=== PATIENT | female | born 1980 | race Caucasian/White ===

== ENCOUNTER 2018-10-10 17:15 | Emergency (ER) | payer OTHER ==
[~2018-10-10] VITALS: Ht 157.5 cm; Wt 61.2 kg
[~2018-10-10 17:15] MED LIST: ADVIL200 MG PO; CLARITIN10 M2 PO; DILAUDID2 MG PO; DULCOLAX5 MG PO; IBUPROFEN800 MG PO; LIDODERM700 MG TOP; NORCO 5-325 TA1 EACH PO; NUVESSA5 GM VG; PERCOCET 5-3251 EACH PO; TRAMADOL HCL50 MG PO; VALIUM5 MG PO; VESICARE10 MG PO; ZITHROMAX500 MG PO
[2018-10-10] MEDS ORDERED: CEPHALEXIN500 MG PO (20:50)
[2018-10-10] MEDS ORDERED: NORCO 5-325 TA1 EACH PO (20:50)
[2018-10-10] MEDS ORDERED: PYRIDIUM200 MG PO (20:50)
== END 2018-10-10 21:12 | disposition home or self-care (01) ==
LOC: ED 17:15
DX: N39.0 Urinary tract infection, site not specified (principal); F17.200 Nicotine dependence, unspecified, uncomplicated
CPT/HCPCS: 81001; 84703; 99284; 99406

== ENCOUNTER 2020-06-19 13:30 | Emergency (ER) | payer BC, OTHER ==
[~2020-06-19] VITALS: Ht 157.5 cm; Wt 61.2 kg
[~2020-06-19 13:30] MED LIST changes: +CEPHALEXIN500 MG PO; +PYRIDIUM200 MG PO
--- NOTE | 2020-06-19 15:00 | EKG ---
[facility] [address] [facility] [place], [place] [address] Signed Normal sinus rhythm Normal ECG No previous ECGs available Confirmed by ELVIE GANN DO ([id number]) on 06/19/2020 2:59:49 PM Electronically Signed By: ELVIE GANN DO 06/19/20 1500 PATIENT NAME: DMITRIY JAQUEZ Electrocardiogram DATE OF : 76 PHYSICIAN: ELVIE GANN DO REPORT #: [id number] REPORT IS CONFIDENTIAL AND NOT TO BE RELEASED WITHOUT AUTHORIZATION
== END 2020-06-19 16:49 | disposition home or self-care (01) ==
LOC: ED 13:30
DX: R56.9 Unspecified convulsions (principal); F17.200 Nicotine dependence, unspecified, uncomplicated
CPT/HCPCS: 70450; 71045; 73610; 80053; 84484; 85025; 93005; 93010; 99285-25

== ENCOUNTER 2022-09-18 07:20 | Day surgery (SDC) | payer BC, OTHER ==
[2022-09-16 16:09] VITALS: BP 102/67
[~2022-09-18] VITALS: Ht 157.5 cm; Wt 65.0 kg
[~2022-09-18 07:20] MED LIST changes: +NAPROXEN250 MG PO
[2022-09-18 07:33] VITALS: BP 119/59
[2022-09-18] MEDS ORDERED: CELECOXIB200 MG PO (11:05)
[2022-09-18] MEDS ORDERED: HYDROCODON-ACE1 EA10 PO (11:05)
--- NOTE | 2022-09-18 11:10 | NUR ---
09/18/22 1110 Jimena Garcia 1104- PT ARRIVES TO PACU AWAKE AND TALKING. PT REPORTS NO PAIN OR NAUSEA. STATES SHE IS "JUST HUNGRY". RESP EVEN AND UNLABORED. OXYGEN SAT 100% ON 6L VIA MASK. 1106- OXYGEN TITRATED OFF. 1109- PT SITTING UP IN BED. PT REPORTS NO DIZZINESS, NAUSEA, OR PAIN.
[2022-09-18 11:27] VITALS: BP 103/70
--- NOTE | 2022-09-18 11:42 | NUR ---
PT ALERT, ORIENTED AND SUPPORTED BY FAMILY. PT SEEMS INFORMED, THANKED ME FOR VISIT. FAMILY WILL REMAIN FOR DC. GAVE BLESSING AND WILL FOLLOW
--- NOTE | 2022-09-21 08:41 | OR ---
[facility] [address] [facility] [place] [address] Signed DATE OF OPERATION: 09/18/2022 SURGEON: Lou Gr MD PREOPERATIVE DIAGNOSIS: Trigger finger, left ring. POSTOPERATIVE DIAGNOSIS: Trigger finger, left ring. PROCEDURE PERFORMED: Trigger finger release, left ring. JUICE STANDARDIZER: None. ANESTHESIA: Touchet block. TOURNIQUET TIME: 20 minutes. BRIEF HISTORY: Jessica is a 42-year-old female with pain and locking in her finger. She did have some abnormal pain behavior in the thumb and index finger as well. She has also was reported skin changes such as extreme cold and blanching of the skin. This makes me think that she may have . The trigger finger release was discussed with her and she elected to proceed. DESCRIPTION OF PROCEDURE: Once consent was obtained, she was taken to the operating room. After adequate anesthesia, she was left on the day surgery bed with a hand table and was prepped and draped in a standard sterile fashion and the Ron block was allowed to establish. A 1 cm incision was made overlying the distal palmar crease on the ring finger, carried through the skin and subcutaneous tissue. Under loupe magnification, the A1 bekah was identified and dissected free of overlying soft tissue. It was then released using tenotomy scissors. The patient was asked to move her fingers. She could not move her hand at all under the Ron block. We did passively move her hand, she had free excursion of the tendon. The wound was copiously irrigated with normal saline, closed with 3-0 nylon and injected with 4 mL of 0.25% Marcaine plain. The wound was then Electronically Signed By: LOU GR MD 09/21/22 0841 PATIENT NAME: JESSICA JAQUEZ OPERATIVE REPORT DATE OF : [birth year] REPORT #: [id number] PHYSICIAN: LOU GR MD PCP: Becky FLORES REPORT IS CONFIDENTIAL AND NOT TO BE RELEASED WITHOUT AUTHORIZATION [facility] [address] [place], [place] [address] Signed dressed with bacitracin, Adaptic, 4x8's, and gauze. She tolerated the procedure well. All sponge, needle, and instrument counts were correct. Lou Gr MD BA/MODL /[id number] Copies: ~ Electronically Signed By: LOU GR MD 09/21/22 0841 PATIENT NAME: JESSICA JAQUEZ OPERATIVE REPORT DATE OF : [birth year] REPORT #: [id number] PHYSICIAN: LOU GR MD PCP: Becky FLORES REPORT IS CONFIDENTIAL AND NOT TO BE RELEASED WITHOUT AUTHORIZATION
== END 2022-09-18 11:40 | disposition home or self-care (01) ==
LOC: DS 07:20
PROVIDERS: ATTEND Specialist
PROC: 0LN80ZZ Release Left Hand Tendon, Open Approach (ICD-10-PCS; principal; 2022-09-18 10:15)
DX: M65.342 Trigger finger, left ring finger (principal)
CPT/HCPCS: 84703; J0690; J2001; J2250; J2704; J7121

== ENCOUNTER 2022-11-25 01:48 | Observation (INO) | payer BC, OTHER ==
[~2022-11-25] VITALS: Ht 157.5 cm; Wt 65.0 kg
--- OUTSIDE RECORDS SUMMARY | ~2022-11-25 | XMS | Continuity of Care Document ---
Demographics + + + | Address | [address] | | | [place] [address] | + + + | Preferred Language | Unknown | + + + | Marital Status | | + + + | Mandaen Affiliation | Unknown | + + + | Race | White | + + + | Ethnic Group | Unknown | + + + Author + + + | Author | [facility] | + + + | Organization | [facility] | + + + | Address | [address] | | | [place] [address] | + + + | Phone | | + + + Care Team Providers + + + + | Care Websphere Process Server Developer Name | Role | Phone | + + + + Unavailable | Unavailable | + + + + Allergies No information. Encounters No information. Functional Status No information. Immunizations No information. Medications No information. Problems + + + + | date | description | facility | + + + + | 2022-09-18 07:20 | TRIGGER FINGER, LEFT RING | [facility] | | | FINGER | | + + + + Procedures No information. Results/Labs No information. Social History No information. Vital Signs No information."
--- OUTSIDE RECORDS SUMMARY | ~2022-11-25 | XMS | Continuity of Care Document ---
Demographics + + + | Address | [address] | | | [place] [address] | + + + | Preferred Language | Unknown | + + + | Marital Status | | + + + | Faith Affiliation | Unknown | + + + | Race | White | + + + | Ethnic Group | Unknown | + + + Author + + + | Author | [facility] | + + + | Organization | [facility] | + + + | Address | [address] | | | [place] [address] | + + + | Phone | | + + + Care Team Providers + + + + | Care Radio Station Engineer Name | Role | Phone | + + + + Unavailable | Unavailable | + + + + Allergies and Intolerances + + + + + | date | description | facility | type | + + + + + | (no date) | No Known Allergies | [facility] | (unknown) | | | | | | + + + + + Encounters No information. Functional Status No information. [...]
--- OUTSIDE RECORDS SUMMARY | ~2022-11-25 | XMS | Continuity of Care Document ---
Demographics + + + | Address | [address] | | | [place] [address] | + + + | Preferred Language | Unknown | + + + | Marital Status | | + + + | Jehovah'S Witness Affiliation | Unknown | + + + | Race | White | + + + | Ethnic Group | Unknown | + + + Author + + + | Author | [facility] | + + + | Organization | [facility] | + + + | Address | [address] | | | [place] [address] | + + + | Phone | | + + + Care Team Providers + + + + | Care Acid Bath Mixer Name | Role | Phone | + [...]
[~2022-11-25 01:48] MED LIST changes: +CELECOXIB200 MG PO; +HYDROCODON-ACE1 EA10 PO
[2022-11-25 05:01] VITALS: BP 105/63
--- NOTE | 2022-11-25 06:49 | NUR ---
Pt admision completed. Pt independent, no complains of pain. at bedside. NPO
--- NOTE | 2022-11-25 07:00 | NUR ---
REPORT RECEIVED FROM KARLA MEDINA. PT LAYING IN BED SEMI-FOWLERS. PT RESPONDS WHEN ADDRESSED. PT DENIES PAIN AT THIS TIME. PT REQUESTING WATER, PROVIDED PT WITH MOUTH SWAB DUE TO PTs NPO STATUS. AT BEDSIDE. PT DENIES ANY OTHER NEEDS AT THIS TIME. CALL LIGHT IN REACH.
--- NOTE | 2022-11-25 08:45 | NUR ---
IN TO ADMINISTER MEDICATION, SEE MAR. PT RESPONDS WHEN ADDRESSED. OR, RN IN ROOM AWAITING TO TAKE PT TO OR. PT DENIES PAIN AT THIS TIME. LR WITH STRAIGHT TUBING HUNG. PT ESCORTED WITH OR NURSE TO OR VIA HOSPITAL BED.
[2022-11-25] MEDS ORDERED: TYLENOL EXTRA500 MG PO (11:32)
[2022-11-25] MEDS ORDERED: PERCOCET 7.5-31 EACH PO (11:32)
--- NOTE | 2022-11-25 11:32 | NUR ---
11/25/22 1132 Pearl Abel 11:19 PT ARRIVED FROM OR, NO AIRWAY NOTED, ON ROOMAIR, HAS 4 SCOPE SITES THAT ARE CLEAN DRY AND INTACK. 1130 PT C/O BURNING ACROSS HER ABD, UNABLE TO RATE PAIN AT THIS TIME, FALLS BACK ASLEEP.
[2022-11-25] MEDS ORDERED: MOTRIN IB200 MG PO (11:33)
--- NOTE | 2022-11-25 11:34 | NUR ---
PT STILL OUT OF ROOM IN OR.
--- NOTE | 2022-11-25 12:05 | NUR ---
PT ARRIVES TO FLOOR ACCOMPANIED BY KARLA VALDOVINOS. BEDSIDE REPORT RECEIVED. PT REPORTING PAIN 10/10 TO ABD. PRN PAIN AND NAUSEA MEDICATION ADMINISTERED, SEE JUL. IV FLUIDS STARTED, SEE JUL. PT REQUESTING ICE CHIPS AND CRACKERS. ICE CHIPS AND CRACKERS PROVIDED. VITALS COMPLETE. ASSESSMENT COMPLETE. LUNG SOUNDS CLEAR. BOWEL TONES ACTIVE. ABD TENDER WITH PALPATION. LAP SITES X4 WITH SMALL AMOUNT OF DRAINAGE NOTED. DRESSINGS OTHERWISE INTACT. PT DENIES ANY OTHER NEEDS AT THIS TIME. CALL LIGHT IN REACH.
--- NOTE | 2022-11-25 12:06 | NUR ---
PATIENT RETURNED FROM THE OR. AT BEDSIDE. WILL RETURN LATER TO DISCUSS THE DISCHARGE PLAN AND PATIENT IS MORE AWAKE FROM SURGERY.
[2022-11-25 12:22] VITALS: BP 129/60
--- NOTE | 2022-11-25 12:56 | HP ---
[facility] [address] [place], [place] [address] Signed ADMISSION DATE: 11/25/2022 REASON FOR ADMISSION: Acute calculous cholecystitis. HISTORY OF PRESENT ILLNESS: This 42-year-old white woman is accompanied by her . She has had increasing right subscapular pain over the past several months. Notably, she has had seven children and multiple family members with gallstones. Her symptoms have accelerated over the past several weeks and last night, an episode occurred that was unrelenting and quite severe. On that basis, she presented to the emergency room where she was found to have normal urinalysis as well as Chem profile and CBC, but with her unrelenting pain underwent a CT scan of the abdomen under the direction of Dr. Stubbs, the emergency room physician. A CT scan showed no evidence of nephrolithiasis, but did show gallstones and mild gallbladder wall thickening. On that basis, she was admitted for acute calculous cholecystitis. Quite notably, her pain is mostly in the subscapular area reliably so and migrating no where else. She has not had complaints of epigastric or right subcostal pain. PAST MEDICAL HISTORY: Relatively unremarkable. She did have trigger finger surgery by Dr. Gr in the recent past. She has had a pelvic fracture and fracture of the lumbar spine in 2015 as well as head trauma. She has had tubal ligation. CURRENT MEDICATIONS: Include Celebrex and [place]. SOCIAL HISTORY: She is . She is accompanied by her . She lives in [place]. She is not working outside the home, though previously worked at [employer]. REVIEW OF SYSTEMS: She denies any shortness of breath or chest pain. She has had no dysphagia or dysuria. Denies any hematemesis or blood per rectum. PHYSICAL EXAMINATION: GENERAL: Pleasant white woman, who does not look systemically toxic at this time. VITAL SIGNS: Temperature is 97.8, pulse 54, respirations 20, blood pressure 112/67. HEENT: Trachea is midline. Mucous membranes are slightly dry. Electronically Signed By: ADRIANO SHERMAN MD 11/25/22 1256 PATIENT NAME: DMITRIY JAQUEZ HISTORY AND PHYSICAL DATE OF : 76 REPORT #: [id number] PHYSICIAN: ADRIANO SHERMAN MD PCP: Becky NGUYEN REPORT IS CONFIDENTIAL AND NOT TO BE RELEASED WITHOUT AUTHORIZATION [facility] [address] [place], [place] [address] Signed CHEST: Clear. HEART: Regular without murmur. ABDOMEN: Soft. There is tenderness in the right upper quadrant. There is no palpable mass. She has no ascites. EXTREMITIES: Show no clubbing, cyanosis, or edema. LABORATORY STUDIES: Show a normal urinalysis. Beta HCG is negative. White count 7.1, hematocrit 40.9 and platelets 114,000. Electrolytes normal. Creatinine 0.79. I reviewed the CT scan. Gallstones are rather subtle, certainly not well calcified. ASSESSMENT: The patient has typical symptoms of biliary pain including subscapular pain and tenderness in the right upper quadrant. She has a strong family history of biliary disease and almost certainly has acute calculous cholecystitis. I discussed the pathophysiology of the problem with him in detail. I have recommended cholecystectomy preferred by a laparoscopic approach. The risk of bleeding, infection, bile duct injury, need for open surgery, need for common duct exploration and so forth were all reviewed in detail. She understands and wished to proceed. PLAN: We will initiate operation this morning. As she does feel somewhat thirsty, additional fluid will be administered as well. MD GREG De [place]/AMINTA /[id number] cc: Dr.Servin Dr. Nguyen Electronically Signed By: ADRIANO SHERMAN MD 11/25/22 1256 PATIENT NAME: DMITRIY JAQUEZ HISTORY AND PHYSICAL DATE OF : 76 REPORT #: [id number] PHYSICIAN: ADRIANO SHERMAN MD PCP: Becky NGUYEN REPORT IS CONFIDENTIAL AND NOT TO BE RELEASED WITHOUT AUTHORIZATION [facility] [address] [facility] [place] [address] Signed Copies: ~ Electronically Signed By: ADRIANO SHERMAN MD 11/25/22 1256 PATIENT NAME: DMITRIY JAQUEZ HISTORY AND PHYSICAL DATE OF : 76 REPORT #: [id number] PHYSICIAN: ADRIANO SHERMAN MD PCP: Becky NGUYEN REPORT IS CONFIDENTIAL AND NOT TO BE RELEASED WITHOUT AUTHORIZATION
[2022-11-25 13:15] VITALS: BP 110/64
[2022-11-25 14:00] VITALS: BP 108/73
[2022-11-25 15:46] VITALS: BP 119/67
--- NOTE | 2022-12-03 18:00 | OR ---
[facility] [address] [place], [place] [address] Signed DATE OF OPERATION: 11/25/2022 SURGEON: Adriano Sherman MD PREOPERATIVE DIAGNOSIS: Acute calculous cholecystitis. POSTOPERATIVE DIAGNOSIS: Acute calculous cholecystitis. PROCEDURES: 1. Laparoscopic cholecystectomy with intraoperative cholangiogram. 2. Surgeon-directed fluoroscopy. ANESTHESIA: General endotracheal. , HAND PACKER/PACKAGER and local 10 mL of 0.5%, Marcaine with epinephrine. INDICATION: This 42-year-old white woman was admitted in the rag inspector hours today following presentation in the emergency room and evaluation by . The patient has complaints of chronic recurring subscapular pain on the right and minimal right subcostal pain. Clinical examination showed tenderness in the right upper quadrant. A CT scan was performed which showed gallstones within the gallbladder, though they were not calcified. Her liver enzymes are normal as is her urinalysis and CBC. She has been fluid resuscitated given intravenous antibiotics, parenteral pain medication, ulcer prophylaxis and DVT prophylaxis and is now ready to undergo cholecystectomy preferred by laparoscopic approach. The patient and her understand the risk of bleeding, infection, bile duct injury, need for open surgery, and of course failure to cure her symptoms and wished to proceed. FINDINGS: Indeed the gallbladder was acutely inflamed. A fair amount of edema was noted in the infundibulum and throughout. The gallbladder once excised had innumerable small stones and one single large stone approximately 2 cm in size. The cholangiogram was normal. The liver was normal. There were no other findings of concern. PROCEDURE IN DETAIL: The patient was brought to the operating room, given a general endotracheal anesthetic. A Lira catheter was placed that she had not voided in some time. Ultimately, 1100 mL Electronically Signed By: ADRIANO SHERMAN MD 12/03/22 1800 PATIENT NAME: DMITRIY JAQUEZ OPERATIVE REPORT DATE OF : 76 REPORT #: [id number] PHYSICIAN: ADRIANO SHERMAN MD PCP: Becky FLORES REPORT IS CONFIDENTIAL AND NOT TO BE RELEASED WITHOUT AUTHORIZATION [facility] [address] [place], [place] [address] Signed of urine was withdrawn. Preoperative antibiotic Ancef had been given and sequential compression device stockings used and heparin subcutaneously administered. The abdomen was prepared with chlorhexidine solution and draped sterilely. An infraumbilical incision was made and using an open Sridhar cannula technique, pneumoperitoneum was achieved at level of 14 mmHg of carbon dioxide gas. Intra-abdominal inspection showed no sign of ascites or carcinomatosis. The gallbladder was largely obscured from view at that point. The liver appeared normal. Three additional trocars were placed in usual configuration in the subxiphoid, right midclavicular, and right anterior axillary line. The liver edge was elevated. The gallbladder was identified and was edematous. It was grasped and elevated cephalad and adhesions to the undersurface were noted. These were taken down with blunt electrocautery dissection. This allowed for further elevation the gallbladder. The gallbladder was quite markedly edematous in the infundibular area. Lateral retraction of the gallbladder allowed for dissection of the triangle of Calot with electrocautery using the hook device. Ultimately the cystic duct and cystic arterial branches were well as was a pericholecystic lymph node. Clips were applied to the arterial branches. A clip was applied to the gallbladder cystic duct junction. A transverse choledochotomy was made in the cystic duct. Using the Tinychat type cholangiocatheter system, intraoperative cholangiography was undertaken showing free flow of contrast in the biliary tree with prompt emptying into the duodenum. There was no sign of filling defect. Retrograde milking of the cystic duct showed a few bits of stone debris, it was noted. The catheter was removed. The cystic duct was triply clipped and divided. The gallbladder dissected free in a retrograde fashion using electrocautery. The gallbladder was placed in an endobag and extracted through the infraumbilical port site opened on the back table and found to have a considerable number of small yellow gallstones as well as one dominant larger gallstone. There is no sign of neoplasm. Electrocautery was used for hemostasis in the bed of the gallbladder. Although reasonably hemostatic. Isaac powdered hemostatic agent was applied for additional security for hemostasis. There was no sign of bile leak or other problems. Excess irrigation fluid was suctioned free. The trocars removed under direct visualization showing no sign of bleeding. The infraumbilical fascial incision reapproximated with interrupted 0 Vicryl suture. 10 mL of 0.25% Marcaine with epinephrine was injected locally. The skin was closed with interrupted 3-0 Vicryl. Steri-Strips were applied. The patient was ultimately extubated and transferred to the recovery room in good condition having suffered no complication. Sponge, needle, and instrument counts were reported correct x3. Electronically Signed By: ADRIANO SHERMAN MD 12/03/22 [facility] PATIENT NAME: DMITRIY JAQUEZ OPERATIVE REPORT DATE OF : 76 REPORT #: [id number] PHYSICIAN: ADRIANO SHERMAN MD PCP: Becky FLORES REPORT IS CONFIDENTIAL AND NOT TO BE RELEASED WITHOUT AUTHORIZATION [address] [place], [place] [address] Signed MD GREG De [place]/AMINTA /[id number] Copies: ~ Electronically Signed By: ADRIANO SHERMAN MD 12/03/22 1800 PATIENT NAME: DMITRIY JAQUEZ OPERATIVE REPORT DATE OF : 76 REPORT #: [id number] PHYSICIAN: ADRIANO SHERMAN MD PCP: Becky FLORES REPORT IS CONFIDENTIAL AND NOT TO BE RELEASED WITHOUT AUTHORIZATION
== END 2022-11-25 16:04 | disposition home or self-care (01) ==
LOC: ED 01:48 → MS 01:50
PROVIDERS: ADMIT Surgery; ATTEND Surgery
PROC: 0FT44ZZ Resection of Gallbladder, Percutaneous Endoscopic Approach (ICD-10-PCS; principal; 2022-11-25 09:00)
DX: K80.12 Calculus of gallbladder with acute and chronic cholecystitis without obstruction (principal); Z79.899 Other long term (current) drug therapy
CPT/HCPCS: 00790; 36415; 74177; 74300; 80053; 81003; 83690; 84703; 85025; 96375; 99285 25; A9270; G0378; J0131; J0690; J1100; J1644; J1885; J2001; J2250; J2270; J2405; J2704; J3010; J3475; J3490; J7030; J7121; Q9967